=== PATIENT | male | born 1955 ===

== ENCOUNTER 2016-07-28 11:43 | Inpatient (IN) | payer BC ==
[2016-07-28] VITALS (433 sets, daily range): BP systolic 111–135; BP diastolic 71–74; PULSE 69–73; TEMP 97.3–98.2; O2SAT 65–100
[~2016-07-28] VITALS: Ht 160 cm; Wt 119.7 kg
[2016-07-28] MEDS ORDERED: RT ADVAIR 528 DISKUS IH (12:10)
[2016-07-28] MEDS ORDERED: DIABETA 5MG5 MG/TAB PO (12:10)
[2016-07-28] MEDS ORDERED: LASIX 40MG TABL40 MG PO (12:11)
[2016-07-28] MEDS ORDERED: ASPIRIN E.C. 8181 MG PO (12:11)
[2016-07-28] MEDS ORDERED: ULTRAM 50MG TAB50 MG PO (12:13)
[2016-07-28] MEDS ORDERED: NEURONTIN100 MG/CAP PO (12:14)
[2016-07-28] MEDS ORDERED: GLUCOPHAGE1000 MG PO (12:15)
[2016-07-28 13:03] LABS: BASO # 0.1 (0.0-0.2); BASO % 0.6 % (0.0-2.0); EOS # 0.1 (0.0-0.7); EOS % 0.8 % (0-4.0); GRAN # 9.5 (1.4-6.5); GRAN % 67.1 % (42.2-75.2); HEMATOCRIT 42.5 % (42.0-52.0); HEMOGLOBIN 13.9 g/dl (13.5-18.0); LYMPH # 3.4 (1.2-3.4); MEAN CELL VOLUME 88 fl (80.0-100.0); MEAN CORPUSCULAR HEMOGLOBIN 29 pg (27.0-31.0); MEAN CORPUSCULAR HGB CONC 33 g/dl (33.0-37.0); MEAN PLATELET VOLUME 12.3 fl (7.4-10.4); MONO % 6.8 % (1.7-9.3); PLATELET COUNT 208 K/mm3 (130-400); RED BLOOD COUNT 4.82 M/mm3 (4.20-5.60); REDCELL DISTRIBUTION WIDTH-CV 13.3 % (11.5-14.5); WHITE BLOOD COUNT 14.2 K/mm3 (4.8-10.8)
[2016-07-28 13:08] LABS: INR 1.2 (0.8-3.0); PROTHROMBIN TIME 13.8 SECONDS (9.7-12.8)
[2016-07-28 13:11] LABS: PARTIAL THROMBOPLASTIN TIME 41.8 SECONDS (26.0-37.0)
[2016-07-28 13:28] LABS: ADJUSTED CALCIUM 9.2 mg/dL (8.4-10.2); ALBUMIN 3.8 gm/dL (3.5-5.0); CREATININE, serum 0.81 mg/dL (0.66-1.25); MAGNESIUM 1.7 mg/dL (1.6-2.3); TOTAL PROTEIN 6.5 gm/dL (6.4-8.2)
[2016-07-28 14:56] LABS: TROPONIN-I 0.175 ng/mL (0.000-0.034)
[2016-07-28 16:01] LABS: PH 5 (5-8); SQUAMOUS EPITHELIAL 0-2 /hpf; URINE APPEARANCE Clear; URINE BACTERIA None Seen /hpf; URINE BILIRUBIN Negative (NEGATIVE); URINE BLOOD Negative (NEGATIVE); URINE COLOR Yellow; URINE GLUCOSE 1+ (NEGATIVE); URINE KETONE Negative (NEGATIVE); URINE RBC 0-2 /hpf; URINE UROBILINOGEN >=4.0 mg/dL (NEGATIVE); URINE WBC 0-2 /hpf
[2016-07-28 23:00] LABS: PARTIAL THROMBOPLASTIN TIME 59.6 SECONDS (26.0-37.0)
[2016-07-29] VITALS (473 sets, daily range): BP systolic 118–148; BP diastolic 65–82; PULSE 56–97; TEMP 97.8–98.3; O2SAT 55–100
[2016-07-29 05:42] LABS: INR 1.2 (0.8-3.0); PROTHROMBIN TIME 13.1 SECONDS (9.7-12.8)
[2016-07-29 05:45] LABS: PARTIAL THROMBOPLASTIN TIME 84.4 SECONDS (26.0-37.0)
[2016-07-29 05:59] LABS: BASO # 0.1 (0.0-0.2); BASO % 0.8 % (0.0-2.0); EOS # 0.2 (0.0-0.7); EOS % 1.6 % (0-4.0); GRAN % 59.2 % (42.2-75.2); HEMATOCRIT 41.5 % (42.0-52.0); HEMOGLOBIN 13.6 g/dl (13.5-18.0); LYMPH # 4.1 (1.2-3.4); MEAN CELL VOLUME 88 fl (80.0-100.0); MEAN CORPUSCULAR HEMOGLOBIN 29 pg (27.0-31.0); MEAN CORPUSCULAR HGB CONC 33 g/dl (33.0-37.0); MEAN PLATELET VOLUME 12.6 fl (7.4-10.4); MONO % 7.4 % (1.7-9.3); PLATELET COUNT 191 K/mm3 (130-400); RED BLOOD COUNT 4.71 M/mm3 (4.20-5.60); REDCELL DISTRIBUTION WIDTH-CV 13.2 % (11.5-14.5); WHITE BLOOD COUNT 13.6 K/mm3 (4.8-10.8)
[2016-07-29 06:27] LABS: ADJUSTED CALCIUM 9.1 mg/dL (8.4-10.2); ALBUMIN 3.8 gm/dL (3.5-5.0); CALCIUM 8.9 mg/dL (8.4-10.2); CREATININE, serum 0.76 mg/dL (0.66-1.25); POTASSIUM 4.4 mmol/L (3.4-5.0); TOTAL PROTEIN 6.9 gm/dL (6.4-8.2)
[2016-07-29 06:48] LABS: TROPONIN-I 0.089 ng/mL (0.000-0.034)
[2016-07-29] MEDS ORDERED: PLAVIX 75MG TAB75 MG PO (14:21)
[2016-07-29] MEDS ORDERED: LIPITOR 80MG80 MG PO (14:21)
[2016-07-29] MEDS ORDERED: NITROSTAT0.4 MG/TAB SL (14:21)
[2016-07-29] MEDS ORDERED: GLUCOPHAGE1000 MG PO (14:23)
[2016-07-29] MEDS ORDERED: LOPRESSOR 225 MG/TAB PO (14:24)
[2016-07-29] MEDS ORDERED: PRINIVIL2.5 MG PO (14:29)
== END 2016-07-29 17:10 | disposition home or self-care (01) | DRG 281 ==
LOC: MEDICAL 11:43 → ICU 11:43
PROVIDERS: Internal Medicine; Nurse Practitioner Family
PROC: 4A023N7 Measurement of Cardiac Sampling and Pressure, Left Heart, Percutaneous Approach (ICD-10-PCS; principal; 2016-07-29)
PROC: B2111ZZ Fluoroscopy of Multiple Coronary Arteries using Low Osmolar Contrast (ICD-10-PCS; 2016-07-29)
DX: I21.4 Non-ST elevation (NSTEMI) myocardial infarction (principal); Z68.42 Body mass index [BMI] 45.0-49.9, adult; E66.01 Morbid (severe) obesity due to excess calories; E87.5 Hyperkalemia; E11.42 Type 2 diabetes mellitus with diabetic polyneuropathy; I10 Essential (primary) hypertension; G47.33 Obstructive sleep apnea (adult) (pediatric); I71.4 Abdominal aortic aneurysm, without rupture; I35.0 Nonrheumatic aortic (valve) stenosis; I25.10 Atherosclerotic heart disease of native coronary artery without angina pectoris; E78.5 Hyperlipidemia, unspecified; Z86.718 Personal history of other venous thrombosis and embolism; Z87.891 Personal history of nicotine dependence
CPT/HCPCS: 99223-AI; 99239; C1760; J1644; J1815; J2250; J3010; J7030; Q9967